=== PATIENT | female | born 2000 | race Caucasian/White ===

== ENCOUNTER 2018-08-01 11:51 | Emergency (ER) | payer OTHER ==
--- NOTE | 2018-08-01 14:19 | RAD ---
INDICATION: Dizziness and cough COMPARISON: None TECHNIQUE: PA and lateral views of the chest were obtained. FINDINGS: The heart and mediastinum are normal in size and contour. The lungs are grossly clear. There is no evidence of large pleural effusion. Visualized bones are normal for the patient's age. There is no radiographic evidence of free air beneath the diaphragm IMPRESSION: No radiographic evidence of acute cardiopulmonary disease.
[2018-08-01 14:43] VITALS: BP 110/72
[2018-08-01] MEDS ORDERED: NS 0.9% 1000 ML* 2,000 ML IV ONE (14:44)
[2018-08-01] MEDS ORDERED: NS 0.9% 1000 ML* 1,000 ML IV ONE (15:47)
--- NOTE | 2018-08-03 07:57 | UC ---
- Progress Note Progress Note: Patient Name: MEAGHAN GONZALEZ Medical Record#: [id number] Ordering Physician: Anisha Blake MD Acct.#: [id number] : 2000 Age: 17 Sex: F Location: [facility] Exam Date: 08/01/18 1357 ADM Status: REG ER Order Information: CHEST PA & LAT 2 VWS Accession Number: [id number] CPT: 19938 INDICATION: Dizziness and cough COMPARISON: None TECHNIQUE: PA and lateral views of the chest were obtained. FINDINGS: The heart and mediastinum are normal in size and contour. The lungs are grossly clear. There is no evidence of large pleural effusion. Visualized bones are normal for the patient's age. There is no radiographic evidence of free air beneath the diaphragm IMPRESSION: No radiographic evidence of acute cardiopulmonary disease. <Electronically signed by Ochoa Swann MD in [place]> 08/01/18 141 Dictated By: Ochoa Swann MD Dictated Date/Time: 08/01/18 141 Transcribed Date/Time: 08/01/18 141 Copy to: CC:No Primary Care Phys,NOPCP ; Anisha Blake MD Imaging - [facility] Imaging [facility] Urgent [facility] [address] [address] ph ([phone]) ph ([phone]) ph ([phone]) This report is only to be considered final once signed by the Provider(s) as displayed in the "<Electronically Signed by >" field (s). Absence of a signature indicates the report is in a draft status and still needs to be finalized. In the event this document was created by someone other than the signing Provider, the individual initiating the document will be listed in the "Entered by:" or "Dictated by:" banks. 1 of 1 Discharge - Sign-Out/Discharge Documenting (check all that apply): Post-Discharge Follow Up All imaging exams completed and their final reports reviewed: No Studies - Discharge Plan Condition: Stable Disposition: HOME Patient Education Materials: Dehydration (ED), Upper Respiratory Infection (ED) Referrals: [facility] [Provider Group] No Primary Care Phys,NOPCP [Primary Care Provider] - Additional Instructions: Follow up with the campus doctor in 1-2 days. return if worse or any new symptoms. Drink plenty of fluids. eat a well balanced diet. Take tyelnol and motrin for pain or fever. - Billing Disposition and Condition Condition: STABLE Disposition: Home
== END 2018-08-01 16:40 | disposition home or self-care (01) ==
LOC: UCCORT 11:51
DX: J06.9 Acute upper respiratory infection, unspecified (principal); E86.0 Dehydration; R42 Dizziness and giddiness
CPT/HCPCS: 71046; 96360; 96361; 99202; G0463